=== PATIENT | female | born 1950 | race African-American/Black ===

== ENCOUNTER 2018-08-18 15:54 | Emergency (ER) | payer OTHER ==
[~2018-08-18] VITALS: Ht 157.5 cm; Wt 84.4 kg
[~2018-08-18 15:54] MED LIST: ESTROGEN
[2018-08-18 16:12] VITALS: BP 107/66
--- NOTE | 2018-08-18 16:15 | NUR ---
THIS 67 YEAR OLD WOMAN BIB SELF WITH THE CHIEF C/O BL KNEE PAIN X2 WEEKS. RIGHT KNEE PAIN WORSE TAODAY. DENIES ANY FALL OR INJURY. NO SWELLING OR INJURY NOTED. DENIES N/V/D. DENIES SOB OR CHEST PAIN. +CMS. NO OBVIOUS DEFORMATIES. DENIES ANY SURGICAL HX. DENIES PAST MEDICAL HX. DENIES ANY ALLERGIES.
[2018-08-18] MEDS ORDERED: MORPHINE SULFATE 4 MG/ML SYR IM ONE (17:00)
[2018-08-18] MEDS ORDERED: ONDANSETRON 4 MG ODT PO ONE (17:00)
--- NOTE | 2018-08-18 17:15 | NUR ---
PT RESTING IN BED, NO S/S OF DISTRESS NOTED. HANDS UNCROSSED. FEET UNCROSSED.
[2018-08-18 17:28] LABS: BASOPHILS # (AUTO) 0.1 K/uL (0.00-0.22); BASOPHILS % (AUTO) 0.6 % (0.0-2.0); EOSINOPHILS # (AUTO) 0.2 K/uL (0-0.4); EOSINOPHILS % (AUTO) 1.6 % (0.0-4.0); HEMATOCRIT 42.8 % (36-48); HEMOGLOBIN 13.9 g/dL (12.0-16.0); LYMPHOCYTES # (AUTO) 3.7 K/uL (2.5-16.5); LYMPHOCYTES % (AUTO) 31.9 % (20.5-51.1); MEAN CORPUSCULAR HEMOGLOBIN 30 pg (27-31); MEAN CORPUSCULAR HGB CONC 33 g/dL (33-37); MEAN CORPUSCULAR VOLUME 91.5 fL (80-94); MONOCYTES # (AUTO) 1.1 K/uL (0.8-1.0); MONOCYTES % (AUTO) 9.4 % (1.7-9.3); NEUTROPHILS # (AUTO) 6.5 K/uL (1.8-7.7); NEUTROPHILS % (AUTO) 56.5 % (42.2-75.2); PLATELET COUNT (AUTO) 294 K/uL (140-450); RED BLOOD CELL COUNT(AUTO) 4.68 MIL/uL (4.20-5.40); RED CELL DISTRIBUTION WIDTH 13.1 % (11.6-13.7); WHITE BLOOD COUNT (AUTO) 11.6 K/uL (4.8-10.8)
[2018-08-18 17:43] LABS: ANION GAP 9.7 (8-16); CARBON DIOXIDE 28.9 mmol/L (21-32); POTASSIUM 3.6 mmol/L (3.5-5.1)
[2018-08-18 17:56] LABS: ALBUMIN 3.7 g/dL (3.4-5.0); TOTAL BILIRUBIN 0.3 mg/dL (0.0-1.0); URIC ACID 5.9 mg/dL (2.6-7.2)
--- NOTE | 2018-08-18 18:16 | NUR ---
DR. BAKER AT BEDSIDE.
[2018-08-18 18:34] VITALS: BP 106/69
--- NOTE | 2018-08-18 18:35 | NUR ---
Patient discharged with v/s stable. Written and verbal after care instructions given and explained. Patient alert, oriented and verbalized understanding of instructions. Ambulatory with steady gait. All questions addressed prior to discharge. ID band removed. Patient advised to follow up with PMD. Rx of NORCO, NAPROSYN given. Patient educated on indication of medication including possible reaction and side effects. Opportunity to ask questions provided and answered.
== END 2018-08-18 18:35 | disposition home or self-care (01) ==
LOC: MED 15:54
DX: M25.561 Pain in right knee (principal); Z79.899 Other long term (current) drug therapy
CPT/HCPCS: 36415; 73562; 80053; 84550; 85025; 85651; 96372; 99284; J2270; Q0092; Q0162

== ENCOUNTER 2019-06-07 15:25 | Emergency (ER) | payer OTHER ==
[2019-06-07] MEDS ORDERED: KETOROLAC 30 MG/ML VIAL ONE (17:30)
[2019-06-07] MEDS ORDERED: metroNIDAZOLE 500 MG/NS PREMIX 100 ML IV ONE (18:20)
[2019-06-07] MEDS ORDERED: LEVOFLOXACIN 500 MG/D5W PREMIX 100 ML IV ONE (18:21)
[2019-06-10 17:37] LABS: HEMATOCRIT 40.6 % (36-48); HEMOGLOBIN 13.1 g/dL (12.0-16.0); RED BLOOD CELL COUNT(AUTO) 4.39 MIL/uL (4.20-5.40); WHITE BLOOD COUNT (AUTO) 13.9 K/uL (4.8-10.8)
[2019-06-10 17:38] LABS: BASOPHILS % (AUTO) 0.7 % (0.0-2.0); EOSINOPHILS # (AUTO) 0.2 K/uL (0-0.4); EOSINOPHILS % (AUTO) 1.1 % (0.0-4.0); LYMPHOCYTES # (AUTO) 2.9 K/uL (2.5-16.5); LYMPHOCYTES % (AUTO) 20.9 % (20.5-51.1); MEAN CORPUSCULAR HEMOGLOBIN 30 pg (27-31); MEAN CORPUSCULAR HGB CONC 32 g/dL (33-37); MEAN CORPUSCULAR VOLUME 92.5 fL (80-94); MONOCYTES # (AUTO) 1.2 K/uL (0.8-1.0); MONOCYTES % (AUTO) 8.5 % (1.7-9.3); NEUTROPHILS # (AUTO) 9.5 K/uL (1.8-7.7); NEUTROPHILS % (AUTO) 68.8 % (42.2-75.2); PLATELET COUNT (AUTO) 305 K/uL (140-450); RED CELL DISTRIBUTION WIDTH 12.7 % (11.6-13.7)
[2019-06-10 17:39] LABS: BASOPHILS # (AUTO) 0.1 K/uL (0.00-0.22)
[2019-06-10 20:31] LABS: ANION GAP 13.5 (8-16); CARBON DIOXIDE 25.5 mmol/L (21-32); CREATININE 0.9 mg/dL (0.6-1.3); TOTAL BILIRUBIN 0.5 mg/dL (0.0-1.0)
[2019-06-10 20:32] LABS: ALBUMIN 3.1 g/dL (3.4-5.0)
[2019-06-13 21:05] LABS: APPEARANCE,URINE SLIGHTLY CLOUDY (CLEAR); COLOR,URINE YELLOW (YELLOW)
[2019-06-13 21:06] LABS: BILIRUBIN,URINE NEGATIVE (NEGATIVE); BLOOD, URINE TRACE (NEGATIVE); LEUKOCYTE ESTERASE ,URINE TRACE (NEGATIVE); NITRITE, URINE NEGATIVE (NEGATIVE); UGLUCOSE NEGATIVE (NEGATIVE)
[2019-06-13 21:07] LABS: RBC,URINE 0-5 /HPF (0-5); WBC,URINE 0-5 /HPF (0-5)
== END 2019-06-07 23:59 | disposition short-term general hospital (02) ==
LOC: MED 15:25
DX: K57.32 Diverticulitis of large intestine without perforation or abscess without bleeding (principal); Z90.49 Acquired absence of other specified parts of digestive tract
CPT/HCPCS: 36415; 71045; 74176; 80053; 81001; 85025; 99284; J1885; J1956; J3490; 99285